=== PATIENT | female | born 1935 | race Caucasian/White ===

== ENCOUNTER 2018-09-10 09:12 | Outpatient (CLI) | payer MEDICARE ==
[~2018-09-10 09:12] MED LIST: ALEN70TA6 PO; ASPI-496 PO; CALC-183 PO; HYDR25TA6 PO; LISI40TA PO; METO25TA35 PO; MULT1TAB60 PO; SIMV80TA PO; VIT1TABL34 PO
== END 2018-09-10 23:59 | disposition home or self-care (01) ==
LOC: CVU 09:12
PROVIDERS: ATTEND Internal Medicine Cardiovascular Disease
DX: I65.23 Occlusion and stenosis of bilateral carotid arteries (principal); I10 Essential (primary) hypertension; I25.10 Atherosclerotic heart disease of native coronary artery without angina pectoris; I25.2 Old myocardial infarction
CPT/HCPCS: 93880

== ENCOUNTER → 2019-07-11 | Outpatient (CLI) | payer MEDICARE ==
[~2019-07-11] MED LIST changes: +OMNIPAQUE 350 MG/ML, 100ML BOTTLE ONE
== END | disposition home or self-care (01) ==
LOC: CFH 08:29
PROVIDERS: ATTEND Surgery
DX: J43.2 Centrilobular emphysema (principal); R91.1 Solitary pulmonary nodule; I70.0 Atherosclerosis of aorta; I77.89 Other specified disorders of arteries and arterioles; M48.53XA Collapsed vertebra, not elsewhere classified, cervicothoracic region, initial encounter for fracture; N28.1 Cyst of kidney, acquired; K80.20 Calculus of gallbladder without cholecystitis without obstruction; M85.88 Other specified disorders of bone density and structure, other site; K76.89 Other specified diseases of liver
CPT/HCPCS: 71275; Q9967

== ENCOUNTER → 2019-11-18 | Outpatient (CLI) | payer MEDICARE ==
[~2019-11-18] MED LIST changes: +MULT-449 PO; -MULT1TAB60 PO; -OMNIPAQUE 350 MG/ML, 100ML BOTTLE ONE
== END | disposition home or self-care (01) ==
LOC: CFH 10:43
PROVIDERS: ATTEND Internal Medicine
DX: M81.0 Age-related osteoporosis without current pathological fracture (principal)
CPT/HCPCS: 77080